=== PATIENT | male | born 1945 | race African-American/Black ===

== ENCOUNTER 2021-11-14 04:18 | Day surgery (SDC) | payer OTHER ==
[2021-11-11 13:18] VITALS: BMI 31.8
[2021-11-14 09:12] VITALS: RESP 18
[2021-11-14] MEDS ORDERED: KETOROLAC TROMETHAMINE 30 MG/1 ML VIAL ONE (10:15)
[2021-11-14] MEDS ORDERED: PROPOFOL 20 ML ONE (10:15)
[2021-11-14] MEDS ORDERED: ONDANSETRON 4 MG/2 ML VIAL ONE (10:15)
[2021-11-14 11:03] VITALS: PULSE 60
[2021-11-14 12:16] VITALS: BP 154/90; TEMP 97.7
[2021-11-14] MEDS ORDERED: ONDANSETRON 4 MG/2 ML VIAL IVPUSH PRN (15:33)
[2021-11-14] MEDS ORDERED: ACETAMINOPHEN 325 MG TABLET (FP) PO PRN (15:33)
[2021-11-14] MEDS ORDERED: LACTATED RINGERS SOLUTION 1,000 ML IV SCH (15:45)
== END 2021-11-14 12:08 | disposition home or self-care (01) ==
LOC: JASU-SURG 04:18
PROVIDERS: ATTEND Urology
PROC: 0TF3XZZ Fragmentation in Right Kidney Pelvis, External Approach (ICD-10-PCS; principal; 2021-11-14 11:00)
DX: N20.0 Calculus of kidney (principal)
CPT/HCPCS: 82962

== ENCOUNTER 2022-01-23 04:07 | Day surgery (SDC) | payer OTHER ==
[2022-01-19 12:22] VITALS: BMI 30.2
[2022-01-23 08:07] VITALS: RESP 20
[2022-01-23] MEDS ORDERED: ONDANSETRON 4 MG/2 ML VIAL ONE (12:00)
[2022-01-23] MEDS ORDERED: MIDAZOLAM HCL 2 MG/2 ML SINGLE DOSE VIAL ONE (12:00)
[2022-01-23] MEDS ORDERED: FENTANYL CITRATE/PF 50 MCG/ML VIAL ONE (12:00)
[2022-01-23] MEDS ORDERED: ACETAMINOPHEN 325 MG TABLET (FP) PO ONE (13:00)
[2022-01-23 13:18] VITALS: BP 157/96; PULSE 60; TEMP 97.6
== END 2022-01-23 13:23 | disposition home or self-care (01) ==
LOC: JASU-SURG 04:07
PROVIDERS: ATTEND Urology
PROC: 0TF4XZZ Fragmentation in Left Kidney Pelvis, External Approach (ICD-10-PCS; principal; 2022-01-23 10:30)
DX: N20.0 Calculus of kidney (principal)
CPT/HCPCS: 82962

== ENCOUNTER 2022-09-18 04:11 | Day surgery (SDC) | payer OTHER ==
[2022-09-11 16:17] VITALS: BMI 30.2
[2022-09-18 08:03] VITALS: PULSE 80
[2022-09-18] MEDS ORDERED: MIDAZOLAM HCL 2 MG/2 ML SINGLE DOSE VIAL ONE (09:40)
[2022-09-18 10:37] VITALS: RESP 18
[2022-09-18 11:17] VITALS: BP 126/80; TEMP 98.5
== END 2022-09-18 12:09 | disposition home or self-care (01) ==
LOC: JASU-SURG 04:11
PROVIDERS: ATTEND Urology
PROC: 0TF4XZZ Fragmentation in Left Kidney Pelvis, External Approach (ICD-10-PCS; principal; 2022-09-18 09:48)
DX: N20.0 Calculus of kidney (principal)
CPT/HCPCS: 82962

== ENCOUNTER 2024-11-24 06:26 | Day surgery (SDC) | payer OTHER ==
[2024-11-19 14:34] VITALS: BMI 29.1
[2024-11-24 09:39] VITALS: RESP 18
[2024-11-24] MEDS ORDERED: MIDAZOLAM HCL 2 MG/2 ML SINGLE DOSE VIAL ONE (10:34)
[2024-11-24 16:58] VITALS: BP 120/73; PULSE 52; TEMP 98
== END 2024-11-24 12:00 | disposition home or self-care (01) ==
LOC: JASU-SURG 06:26
PROVIDERS: ATTEND Urology
PROC: 0TF3XZZ Fragmentation in Right Kidney Pelvis, External Approach (ICD-10-PCS; principal; 2024-11-24 10:45)
DX: N20.0 Calculus of kidney (principal)